=== PATIENT | male | born 1985 | race Caucasian/White ===

== ENCOUNTER 2021-08-09 13:15 | Emergency (ER) | payer OTHER ==
[2021-08-09 14:07] VITALS: BP 137/87; PULSE 67; RESP 20; TEMP 98.5
--- NOTE | 2021-08-09 15:17 | CT ---
EXAMINATION TYPE: CT facial bones wo con DATE OF EXAM: 08/09/2021 COMPARISON: None HISTORY: fall off roof, left eye laceration CT DLP: 789.7 mGycm Automated exposure control for dose reduction was used. TECHNIQUE: CT scan of the sinuses is performed without contrast, axial images are obtained, coronal r eformatted images are also reviewed. FINDINGS: The paranasal sinuses including the frontal, ethmoid, sphenoid, and maxillary sinuses bila terally are well-aerated without abnormal opacification. The ostiomeatal complex is patent bilateral ly on the coronal images. Nasal septal deviation. Visualized portion of mastoid air cells show no abnormal opacification. The globes are intact bilate rally. Preseptal edema adjacent to the left orbit Globe intact. IMPRESSION: 1. No acute fracture
--- NOTE | 2021-08-09 15:25 | CT ---
EXAMINATION TYPE: CT brain cspine wo con DATE OF EXAM: 08/09/2021 COMPARISON: None HISTORY: fall off roof, left eye laceration CT DLP: 1115.1 mGycm Automated exposure control for dose reduction was used. TECHNIQUE: CT scan of the head and cervical spine are performed without contrast. FINDINGS: There is hyperdensity along the posterior midline which could represent the internal cere bral vein is subdural hematoma cannot be excluded given the hyperdensity. Correlate with serum the pa tient is dehydrated. Postcontrast CT brain exam recommended for further evaluation.. The globes are intact and the visualized sinuses are clear. There appears to be preseptal soft tissue edema overlyin g the left orbit. There is a epidural and subcutaneous nodule involving the right superior posterior parietal region correlate with clinical exam. Low-lying cerebellar tonsils. Cervical spine is visualized in its entirety from C1 through upper thoracic levels and demonstrates s atisfactory alignment without evidence of acute fracture or dislocation. Prevertebral soft tissue ap pears within normal limits. The C1-C2 articulation is unremarkable. IMPRESSION: 1. There is no acute fracture or dislocation evident in the cervical spine. 2. There is a hyperdense linear extension which could represent internal cerebral vein. However, this appears hyperdense. There is contiguous with the venous sinuses. Recommend CT with contrast of the b rain for confirmation otherwise the finding could represent a small subdural hematoma.. 3. There appears to be preseptal soft tissue edema overlying the left orbit. There is a epidural and subcutaneous nodule involving the right superior posterior parietal region correlate with clinical ex am. Low-lying cerebellar tonsils follow-up MRI recommended to exclude Chiari malformation
--- NOTE | 2021-08-09 15:25 | ED ---
Fall HPI - General Chief Complaint: Fall Stated Complaint: Fall,Ankle & Head Injury Time Seen by Provider: 08/09/21 14:13 Source: patient, RN notes reviewed Mode of arrival: ambulatory Limitations: no limitations - History of Present Illness Initial Comments: This a 35-year-old male presents emergency Department chief complaint of a fall. Patient states he was on the edge of the roof states it's a one-story house states that the board slipped he went down with the piece of plywood and states that he fell awkwardly. Patient injured his right ankle, did hit his face on the board. His tetanus is up-to-date last 5 years he has no ocular pain no pain with movement no blurred vision no eye irritation or sensation of foreign body. Patient complains of minimal headache no neck, back no abdominal pain no other extremity injury. patient does no want meds currently - Related Data Home Medications Medication Instructions Recorded Confirmed No Known Home Medications 08/09/21 08/09/21 Allergies Allergy/AdvReac Type Severity Reaction Status Date / Time No Known Allergies Allergy Verified 08/09/21 15:45 Review of Systems ROS Statement: Those systems with pertinent positive or pertinent negative responses have been documented in the HPI. ROS Other: All systems not noted in ROS Statement are negative. Past Medical History Past Medical History: No Reported History History of Any Multi-Drug Resistant Organisms: None Reported Past Surgical History: No Surgical Hx Reported Past Psychological History: No Psychological Hx Reported Smoking Status: Current every day smoker Past Alcohol Use History: Occasional Past Drug Use History: None Reported General Exam Limitations: no limitations General appearance: alert, in no apparent distress Head exam: Present: atraumatic, normocephalic, normal inspection Eye exam: Present: normal appearance, PERRL, EOMI, periorbital swelling, periorbital tenderness (Minimal right with multiple superficial abrasions, lacerations). Absent: scleral icterus, conjunctival injection ENT exam: Present: normal exam, normal oropharynx, mucous membranes moist, TM's normal bilaterally Neck exam: Present: normal inspection, full ROM. Absent: tenderness, meningismus, lymphadenopathy Respiratory exam: Present: normal lung sounds bilaterally. Absent: respiratory distress, wheezes, rales, rhonchi, stridor Cardiovascular Exam: Present: regular rate, normal rhythm, normal heart sounds. Absent: systolic murmur, diastolic murmur, rubs, gallop, clicks GI/Abdominal exam: Present: soft, normal bowel sounds. Absent: distended, tenderness, guarding, rebound, rigid Extremities exam: Present: other (Right ankle swelling noted, neurovascular intact, tenderness remaining extremity exam within normal limits.) Back exam: Present: normal inspection, full ROM. Absent: tenderness, paraspinal tenderness, vertebral tenderness Neurological exam: Present: alert, oriented X3, CN II-XII intact, reflexes normal. Absent: motor sensory deficit Skin exam: Present: warm, dry, normal color. Absent: rash Course Vital Signs 08/09/21 14:03 Temperature 98.5 F Pulse Rate 67 Respiratory 20 Rate Blood Pressure 137/87 O2 Sat by Pulse 100 Oximetry Procedures - Orthopedic Splinting/Casting Injury #1 Side: right Lower Extremity Injury Location: short leg, ankle Lower Extremity Immobilizer: posterior splint, synthetic pre-padded splint Other Orthopedic Equipment: crutches Medical Decision Making - Medical Decision Making 35-year-old presented for a fall. Patient is a right ankle fracture, did have facial abrasions lacerations no closure needed. Patient CT showed possible bleed which was negative after CT with contrast. Patient will follow-up with orthopedics production team manager Dr. Islas return parameters were discussed. Disposition Clinical Impression: Fall, Laceration of periorbital area, Head contusion, Closed fracture of right distal tibia Disposition: HOME SELF-CARE Condition: Stable Instructions (If sedation given, give patient instructions): Ankle Fracture (ED), Head Injury (ED) Additional Instructions: Please return to the Emergency Department if symptoms worsen or any other concerns. Is patient prescribed a controlled substance at d/c from ED?: No Referrals: None,Stated [Primary Care Provider] - 1-2 days Brando Strauss MD [STAFF PHYSICIAN] - 1-2 days Time of Disposition: 16:25
--- NOTE | 2021-08-09 15:26 | XR ---
Right ankle HISTORY: Trauma and pain 3 views of the right ankle There is soft tissue swelling present. There is a fracture to the posterior malleolus which is nondis placed extending to the tibiotalar joint. There is no dislocation. Superimposition could limit evalua tion of the posterior fibula distally. IMPRESSION: Intra-articular nondisplaced posterior malleolus fracture of the right ankle
[2021-08-09] MEDS ORDERED: RX INFO: IV CONTRAST WAS GIVEN 1 EACH MISC MISCELLANE PRN (15:29)
[2021-08-09] MEDS ORDERED: HYDROcodone/APAP 7.5-325MG 1 EACH TAB PO ONE (15:30)
[2021-08-09] MEDS ORDERED: SODIUM CHLORIDE 0.9% 1,000 ML IV ONE (15:30)
--- NOTE | 2021-08-09 16:11 | CT ---
EXAMINATION TYPE: CT brain w con DATE OF EXAM: 08/09/2021 COMPARISON: pain HISTORY: abnormal prior CT DLP: 1100.4 mGycm Automated exposure control for dose reduction was used. CONTRAST: CT scan of the head is performed with IV Contrast, patient injected with 100 mL of Isovue 300. FINDINGS: There is no abnormal enhancing mass or midline shift identified. The ventricles and sulci are within normal limits in size. The globes are intact and the visualized sinuses are clear. There is enhance ment of the area of concern compatible with internal cerebral vein. IMPRESSION: There is concern appears to enhance and likely represents a prominent vein of Johnnie or internal cereb ral veins and could be followed with a follow-up MRI.
[2021-08-09] MEDS ORDERED: ACET/COD 300 MG/30 MG STARTER PACK 6 TAB BTL PO STA (16:26)
== END 2021-08-09 16:47 | disposition home or self-care (01) ==
LOC: EC 13:15
DX: S82.301A Unspecified fracture of lower end of right tibia, initial encounter for closed fracture (principal); S01.111A Laceration without foreign body of right eyelid and periocular area, initial encounter; S00.93XA Contusion of unspecified part of head, initial encounter; F17.200 Nicotine dependence, unspecified, uncomplicated; W13.2XXA Fall from, out of or through roof, initial encounter; Y92.89 Other specified places as the place of occurrence of the external cause; Y99.0 Civilian activity done for income or pay
CPT/HCPCS: 73610; 72125; 70486; 70450; 70460; 96360; 99284; Q9967